=== PATIENT | male | born 1940 | race Caucasian/White ===

== ENCOUNTER 2018-01-15 11:49 | Emergency (ER) | payer MEDICARE, BC ==
[~2018-01-15] VITALS: Ht 185.4 cm; Wt 97.0 kg
[~2018-01-15 11:49] MED LIST: ATOR10TA70 PO; CITA10TA9 PO; ESOM40CA PO
[2018-01-15 11:55] VITALS: BP 127/79
== END 2018-01-15 13:44 | disposition home or self-care (01) ==
LOC: ER 11:50
DX: S60.221A Contusion of right hand, initial encounter (principal); K21.9 Gastro-esophageal reflux disease without esophagitis; W22.8XXA Striking against or struck by other objects, initial encounter; Y93.89 Activity, other specified; Y92.89 Other specified places as the place of occurrence of the external cause; Y99.8 Other external cause status
CPT/HCPCS: 73130; 99284; A4565; A6449

== ENCOUNTER 2020-04-29 12:52 | Emergency (ER) | payer MEDICARE, BC ==
[~2020-04-29] VITALS: Ht 182.9 cm; Wt 90.9 kg
--- NOTE | 2020-04-29 13:31 | NUR ---
PT IS 79 YO MALE C/O GRD LEVEL FALL ABOUT ONE HOUR AGO, NOT ON BLOOD THINNERS, WAS CARRYING A KITCHEN AID MIXER, LOST HIS BALANCE AND FELL ON RT SIDE, MINOR ABRASION TO RT LATERAL KNEE, RT SHOULDER PAIN, NO OBVIOUS DEFORMITY, +CMS TO RT HAND, WAITING TO BE EVALUATED BY PROVIDER
[2020-04-29] MEDS ORDERED: ondansetron 4mg rapidly disintigrating tab PO ONE ×2 (13:50→15:10)
[2020-04-29] MEDS ORDERED: HYDROcodone/acetaminophen 5mg/325mg tablet PO ONE (13:50)
[2020-04-29] MEDS ORDERED: morphine 4 MG/ML inj SYRINge IM ONE (15:10)
--- NOTE | 2020-04-29 15:19 | NUR ---
PT TO CT
[2020-04-29] MEDS ORDERED: ONDA4TAB6 PO (16:03)
[2020-04-29] MEDS ORDERED: HYDR-4383 PO (16:03)
[2020-04-29 16:43] VITALS: BP 120/83
== END 2020-04-29 16:25 | disposition home or self-care (01) ==
LOC: ER 12:54
DX: M25.511 Pain in right shoulder (principal); M54.2 Cervicalgia; K21.9 Gastro-esophageal reflux disease without esophagitis; F41.9 Anxiety disorder, unspecified; Z79.899 Other long term (current) drug therapy
CPT/HCPCS: 70450; 71250; 72125; 73030; 73564; 99285

== ENCOUNTER 2021-10-16 10:51 | Emergency (ER) | payer MEDICARE, BC ==
[~2021-10-16 10:51] MED LIST changes: -CITA10TA9 PO; +CITA10TA93 PO; +HYDR-4383 PO; +ONDA4TAB6 PO
[2021-10-16] MEDS ORDERED: normal saline 1000ML IV soln IVB STA (10:53)
[2021-10-16] MEDS ORDERED: methylPREDNISolone sod succ 125mg/2ml vial IV ONE (10:55)
[2021-10-16] MEDS: famotidine/PF 10 mg/ml inj IV ONE ×2 (11:15→11:19)
[2021-10-16] MEDS ORDERED: EPIN0.3P3 IM (12:59)
[2021-10-16] MEDS ORDERED: triamcinolone acetonide 40mg/ml inj IM ONE (13:00)
[2021-10-16 13:19] VITALS: BP 134/80
== END 2021-10-16 13:29 | disposition home or self-care (01) ==
LOC: ER 10:52
DX: T78.1XXA Other adverse food reactions, not elsewhere classified, initial encounter (principal); L50.9 Urticaria, unspecified; K21.9 Gastro-esophageal reflux disease without esophagitis; F41.9 Anxiety disorder, unspecified; Z79.899 Other long term (current) drug therapy; Y92.89 Other specified places as the place of occurrence of the external cause
CPT/HCPCS: 93005; 96372; 96374; 96375; 99284; J2930; J3301; J3490; J7030

== ENCOUNTER 2021-11-06 05:46 | Emergency (ER) | payer MEDICARE, BC ==
[~2021-11-06] VITALS: Ht 182.9 cm; Wt 90.9 kg
[~2021-11-06 05:46] MED LIST changes: +EPIN0.3P3 IM
--- NOTE | 2021-11-06 05:54 | NUR ---
PATIENT IN WITH HIS . HIS FELL AND HIT HER FACE ON THE NIGHT STAND. WHICH CAUSE HIM TO HAVE A ANIXETY WHERE HE FELT LIGHT HEAD.
--- NOTE | 2021-11-06 06:19 | NUR ---
HAND OFF GIVEN TO NEST SHIFT RN, PATIENT STABLE AT THIS TIME, CARDIAC MONITOIR IN PLACE
[2021-11-06 07:00] LABS: BASOPHILS % (AUTO) 0.6 % (0-1); EOSINOPHILS # (AUTO) 0.2 X10'3 (0-0.9); EOSINOPHILS % (AUTO) 2.7 % (0-6); HEMATOCRIT 40.9 % (42.0-52.0); MEAN CORPUSCULAR HEMOGLOBIN 30.6 PG (27.0-31.0); MEAN CORPUSCULAR HGB CONC 34.1 g/dL (33.0-36.5); MEAN CORPUSCULAR VOLUME 89.7 FL (78-98); MEAN PLATELET VOLUME 6.7 FL (7.4-10.4); MONOCYTES # (AUTO) 0.7 X10'3 (0-0.9); NEUTROPHILS # (AUTO) 3.2 X10'3 (1.8-7.7); NEUTROPHILS % (AUTO) 51.7 % (42-75); PLATELET COUNT 300 X10'3 (140-440); RED BLOOD COUNT 4.56 X10'6 (4.70-6.10); RED CELL DISTRIBUTION WIDTH 13.8 % (11.5-14.5); WHITE BLOOD COUNT 6.2 X10'3 (4.5-11.0)
[2021-11-06 07:19] LABS: ALANINE AMINOTRANSFERASE 25 U/L (12-78); ALBUMIN 3.4 G/DL (3.4-5.0); ALBUMIN/GLOBULIN RATIO 0.9 (1.1-1.5); ALKALINE PHOSPHATASE 70 IU/L (46-116); ANION GAP 10 (8-16); ASPARTATE AMINO TRANSFERASE 12 U/L (10-37); BILIRUBIN,TOTAL 0.4 MG/DL (0.1-1.0); BLOOD UREA NITROGEN 13 MG/DL (7-18); BUN/CREATININE RATIO 11.2 (5.4-32.0); CALCIUM 8.5 MG/DL (8.5-10.1); CHLORIDE 105 MMOL/L (99-107); CREATININE 1.16 MG/DL (0.60-1.10); GLUCOSE 99 MG/DL (70-104); POTASSIUM 4.1 MMOL/L (3.5-5.1); SODIUM 138 MMOL/L (135-145); TOTAL CARBON DIOXIDE 23.3 MMOL/L (24-32); TOTAL PROTEIN 7.1 G/DL (6.4-8.2); eGFR 60 ML/MIN
[2021-11-06 07:28] LABS: MAGNESIUM 1.8 MG/DL (1.5-2.4)
[2021-11-06 09:03] VITALS: BP 142/79
[2021-11-06] MEDS ORDERED: acetaminophen 325mg tablet PO ONE (10:40)
[2021-11-06] MEDS ORDERED: ondansetron 4mg rapidly disintigrating tab PO ONE (10:40)
== END 2021-11-06 10:48 | disposition home or self-care (01) ==
LOC: ER 05:47
DX: S01.21XA Laceration without foreign body of nose, initial encounter (principal); R55 Syncope and collapse; R42 Dizziness and giddiness; K21.9 Gastro-esophageal reflux disease without esophagitis; Z79.899 Other long term (current) drug therapy; W06.XXXA Fall from bed, initial encounter; Y93.89 Activity, other specified; Y92.89 Other specified places as the place of occurrence of the external cause; Y99.8 Other external cause status
CPT/HCPCS: 36415; 71045; 80053; 83735; 83880; 84484; 85025; 93005; 99285